=== PATIENT | male | born 1975 | race Caucasian/White ===

== ENCOUNTER 2018-02-08 12:08 | Emergency (ER) | payer SELFPAY ==
[~2018-02-08] VITALS: Ht 198.1 cm; Wt 102.1 kg
[2018-02-08] MEDS ORDERED: MAGN296S9 PO (12:38)
--- NOTE | 2018-02-08 12:38 | PHYS DOC ---
Past History Past Medical History: Seizure, Other Past Surgical History: Appendectomy, Other Alcohol Use: Occasionally Drug Use: None Adult General Chief Complaint Chief Complaint: GI PROBLEM HPI HPI Patient is a 43 year old male who presents with complaining of abdominal pain. Patient states he has history of Crohn's disease and complaining of chronic generalized abdominal pain for years that getting force for the last 5 weeks as a constant pain with radiation to his back. She rated his pain 10 over 10 and denies nausea and vomiting and diarrhea and constipation and states he had a bowel movement this morning without change of his pain. Patient states he lives in [place] and usually goes to the [facility] right now visiting his brother who lost his . According to EMR patient was seen in this emergency room late last night and server cashier and had unremarkable CBC, CMP, UA, CT of abdomen and pelvis except for constipation and treated with Dilaudid and had prescription for medication. Patient states he did go to [place] and refilled his medication but didn't take his medication. Review of Systems Review of Systems Constitutional: Denies fever or chills [] Eyes: Denies change in visual acuity, redness, or eye pain [] HENT: Denies nasal congestion or sore throat [] Respiratory: Denies cough or shortness of breath [] Cardiovascular: No additional information not addressed in HPI [] GI: Denies abdominal pain, nausea, vomiting, bloody stools or diarrhea [] : Denies dysuria or hematuria [] Musculoskeletal: Denies back pain or joint pain [] Integument: Denies rash or skin lesions [] Neurologic: Denies headache, focal weakness or sensory changes [] Endocrine: Denies polyuria or polydipsia [] All other systems were reviewed and found to be within normal limits, except as documented in this note. Allergies Allergies Allergies Coded Allergies Type Severity Reaction Last Updated Verified No Known Drug Allergies 02/08/18 No Physical Exam Physical Exam Constitutional: Well l nourished, no acute distress, non-toxic appearance. [] HENT: Normocephalic, oropharynx moist Eyes: PERRLA, EOMI, conjunctiva normal, no discharge. [] Neck: Normal range of motion, no tenderness, supple, no stridor. [] Cardiovascular:Heart rate regular rhythm, no murmur [] Lungs & Thorax: Bilateral breath sounds clear to auscultation [] Abdomen: Bowel sounds normal, soft, no tenderness, no masses, no pulsatile masses, abdominal clean old scar without abdominal distention or tenderness. [] Skin: Warm, dry, no erythema, no rash. [] Back: No tenderness, no CVA tenderness. [] Extremities: No tenderness, no cyanosis, no clubbing, ROM intact, no edema. [] Neurologic: Alert and oriented X 3, normal motor function, normal sensory function, no focal deficits noted. [] Psychologic: Affect anxious, judgement normal, mood normal. [] Current Patient Data Vital Signs Vital Signs Date Time Temp Pulse Resp B/P (MAP) Pulse Ox O2 Delivery O2 Flow Rate FiO2 02/08/18 12:21 98.9 85 22 97 Room Air EKG EKG [] Radiology/Procedures Radiology/Procedures [] Course & Med Decision Making Course & Med Decision Making Evaluation of patient in ER showed 43-year-old male patient with history of Crohn's disease who presented to this emergency room for the second time in the last few hours with complaining of chronic abdominal pain. Patient was treated with Dilaudid earlier this morning. CT of abdomen and pelvis showed constipation. Patient states that he cannot have. Pain medication because of constipation and is to follow-up with his GI specialist and primary care physician. According to EMR patient is not allergic to any medication but he stated he is allergic to Toradol, morphine and fentanyl. Patient treated with Norflex and prescription for magnesium citrate was given. Dragon Disclaimer Dragon Disclaimer This electronic medical record was generated, in whole or in part, using a voice recognition dictation system. Departure Departure: Impression: Primary Impression: Chronic abdominal pain Additional Impressions: Constipation Tobacco abuse Tobacco abuse counseling Crohns disease Drug-seeking behavior Disposition: HOME, SELF-CARE (At 1245) Condition: STABLE Referrals: PCP,NO (PCP) Patient Instructions: Constipation, Adult, Smoking Cessation, Smoking Cessation , Tips For Success Additional Instructions: Drink plenty of liquids Follow-up with your primary care physician in 3-5 days Return to ER if not getting better Scripts Magnesium Citrate (MAGNESIUM CITRATE) 296 Ml Solution 296 ML PO ONCE, #296 ML Prov: ISMAEL HERRING MD 02/08/18 Problem Qualifiers ISMAEL HERRING MD Feb 08, 2018 12:38
[2018-02-08] MEDS ORDERED: ORPHENADRINE CITRATE 60 MG/2 ML VIAL. IM ONE (12:45)
[2018-02-08 12:54] VITALS: BP 129/78
== END 2018-02-08 12:59 | disposition home or self-care (01) ==
LOC: ER 12:08
DX: G89.29 Other chronic pain (principal); R10.84 Generalized abdominal pain; K59.00 Constipation, unspecified; K50.90 Crohn's disease, unspecified, without complications; Z76.5 Malingerer [conscious simulation]; Z72.0 Tobacco use; Z71.6 Tobacco abuse counseling; Z90.89 Acquired absence of other organs
CPT/HCPCS: 96372; 99283; J2360

== ENCOUNTER 2018-05-31 03:34 | Emergency (ER) | payer MEDICAID, MEDICARE ==
[~2018-05-31] VITALS: Ht 198.1 cm; Wt 104.3 kg
[~2018-05-31 03:34] MED LIST: MAGN296S9 PO
--- NOTE | 2018-05-31 04:03 | PHYS DOC ---
Adult General Chief Complaint Chief Complaint depression HPI HPI 43 years old gentleman presented emergency department with suicidal ideation stated on thinking to hang myself has a history of depression Review of Systems Review of Systems Constitutional: Denies fever or chills [] Eyes: Denies change in visual acuity, redness, or eye pain [] HENT: Denies nasal congestion or sore throat [] Respiratory: Denies cough or shortness of breath [] Cardiovascular: No additional information not addressed in HPI [] GI: Denies abdominal pain, nausea, vomiting, bloody stools or diarrhea [] : Denies dysuria or hematuria [] Musculoskeletal: Denies back pain or joint pain [] Integument: Denies rash or skin lesions [] Neurologic: Denies headache, focal weakness or sensory changes [] Endocrine: Denies polyuria or polydipsia [] All other systems were reviewed and found to be within normal limits, except as documented in this note. Allergies Allergies Allergies Coded Allergies Type Severity Reaction Last Updated Verified No Known Drug Allergies 02/08/18 No Physical Exam Physical Exam Constitutional: Well developed, well nourished, no acute distress, non-toxic appearance. [] HENT: Normocephalic, atraumatic, bilateral external ears normal, oropharynx moist, no oral exudates, nose normal. [] Eyes: PERRLA, EOMI, conjunctiva normal, no discharge. [] Neck: Normal range of motion, no tenderness, supple, no stridor. [] Cardiovascular:Heart rate regular rhythm, no murmur [] Lungs & Thorax: Bilateral breath sounds clear to auscultation [] Abdomen: Bowel sounds normal, soft, no tenderness, no masses, no pulsatile masses. [] Skin: Warm, dry, no erythema, no rash. [] Back: No tenderness, no CVA tenderness. [] Extremities: No tenderness, no cyanosis, no clubbing, ROM intact, no edema. [] Neurologic: Alert and oriented X 3, normal motor function, normal sensory function, no focal deficits noted. [] Current Patient Data Vital Signs Vital Signs Date Time Temp Pulse Resp B/P (MAP) Pulse Ox O2 Delivery O2 Flow Rate FiO2 05/31/18 03:45 98.0 83 20 95 Room Air EKG EKG [] Radiology/Procedures Radiology/Procedures [] Course & Med Decision Making Course & Med Decision Making Pertinent Labs and Imaging studies reviewed. (See chart for details) [] Final Impression Final Impression [] Problems: (1) Suicidal ideation (2) Depressed Qualifiers: Qualified Codes: F33.1 - Major depressive disorder, recurrent, moderate Dragon Disclaimer Dragon Disclaimer This electronic medical record was generated, in whole or in part, using a voice recognition dictation system. KARRIE ADAMS MD May 31, 2018 04:03
[2018-05-31 04:15] LABS: BASO % 0 % (0-3); EOS % 0 % (0-3); HEMATOCRIT 41.3 % (39.0-53.0); HEMOGLOBIN 14.4 g/dL (13.0-17.5); LYMPH # 0.5 x10^3/uL (1.0-4.8); LYMPH % 6 % (24-48); MEAN CORPUSCULAR HEMOGLOBIN 32 pg (25-35); MEAN CORPUSCULAR HGB CONC 35 g/dL (31-37); MEAN CORPUSCULAR VOLUME 92 fL (79-100); MONO # 0.1 x10^3/uL (0.0-1.1); MONO % 1 % (0-9); NEUT # 8.9 x10^3uL (1.8-7.7); NEUT % 93 % (31-73); PLATELET COUNT 266 x10^3/uL (140-400); RED CELL DISTRIBUTION WIDTH 14.4 % (11.5-14.5); WHITE BLOOD COUNT 9.5 x10^3/uL (4.0-11.0)
[2018-05-31] MEDS ORDERED: LORazepam 1 MG TABLET PO ONE ×2 (04:15→10:30)
[2018-05-31 04:25] LABS: CALCIUM 8.7 mg/dL (8.5-10.1); GFR 81.2; POTASSIUM 4.4 mmol/L (3.5-5.1)
[2018-05-31 04:32] LABS: BARBITURATES NEG (NEG); BENZODIAZEPINES NEG (NEG); CANNABINOIDS NEG (NEG); COCAINE NEG (NEG); METHADONE NEG (NEG); OPIATES POS (NEG); PHENCYCLIDINE NEG (NEG)
[2018-05-31 04:33] LABS: AMPHETAMINE/METHAMPHETAMINE NEG (NEG)
[2018-05-31] MEDS ORDERED: diphenhydrAMINE HCL 25 MG CAPSULE PO ONE (05:00)
[2018-05-31] MEDS ORDERED: levETIRAcetam 500 MG TABLET PO ONE (10:30)
[2018-05-31] MEDS ORDERED: lamoTRIgine 100 MG TABLET. PO ONE (10:30)
[2018-05-31 13:33] VITALS: BP 122/71
== END 2018-05-31 12:55 ==
LOC: ER 03:34
DX: R45.851 Suicidal ideations (principal); F33.1 Major depressive disorder, recurrent, moderate
CPT/HCPCS: 36415; 80048; 80307; 85025; 99285; G0480

== ENCOUNTER 2019-10-09 18:03 | Emergency (ER) | payer MEDICARE ==
[~2019-10-09] VITALS: Ht 198.1 cm; Wt 104.5 kg
[~2019-10-09 18:03] MED LIST changes: +MAGN296S68 PO; -MAGN296S9 PO
[2019-10-09 18:08] VITALS: BP 122/78
[2019-10-09] MEDS ORDERED: IV NORMAL SALINE 1,000ML 1,000 ML IV ONE (18:30)
--- NOTE | 2019-10-09 18:34 | PHYS DOC ---
Past History Past Medical History: TB, Other Additional Past Medical Histor: LIVER LAC Past Surgical History: Appendectomy, Other Additional Past Surgical Histo: SURGERY OF LEG Alcohol Use: Heavy Drug Use: None General Adult EDM: Chief Complaint: MEDICAL CLEARANCE HPI: HPI: 44-year-old male presents via EMS as a diversion from the [facility]. The patient was coming from [place] for alcohol and methamphetamine detox. He is expecting to be able to be admitted to a detox program. He does not have any other medical complaints. His last alcohol was 6 hours ago. His last methamphetamines was 4 days ago. He denies fever chills. Review of Systems: Review of Systems: Constitutional: Denies fever or chills Eyes: Denies change in visual acuity HENT: Denies nasal congestion or sore throat Respiratory: Denies cough or shortness of breath Cardiovascular: Denies chest pain or edema GI: Denies abdominal pain, nausea, vomiting, bloody stools or diarrhea : Denies dysuria Musculoskeletal: Denies back pain or joint pain Integument: Denies rash Neurologic: Denies headache, focal weakness or sensory changes Endocrine: Denies polyuria or polydipsia Lymphatic: Denies swollen glands Psychiatric: Denies depression or anxiety Heart Score: Risk Factors: Risk Factors: DM, Current or recent (<one month) smoker, HTN, HLP, family history of CAD, obesity. Risk Scores: Score 0 - 3: 2.5% MACE over next 6 weeks - Discharge Home Score 4 - 6: 20.3% MACE over next 6 weeks - Admit for Clinical Observation Score 7 - 10: 72.7% MACE over next 6 weeks - Early Invasive Strategies Current Medications: Current Meds: Current Medications Medications (Trade) Dose Ordered Sig/Leslie Start Time Stop Time Status Last Admin Dose Admin Sodium Chloride 1,000 ml @ 1,000 mls/hr 1X ONCE 10/09/19 18:30 10/09/19 19:29 UNV Allergies: Allergies: Allergies Coded Allergies Type Severity Reaction Last Updated Verified No Known Drug Allergies 02/08/18 No Physical Exam: PE: Constitutional: Well developed, well nourished, no acute distress, non-toxic appearance. [] HENT: Normocephalic, atraumatic, bilateral external ears normal, oropharynx moist, no oral exudates, nose normal. [] Eyes: PERRLA, EOMI, conjunctiva normal, no discharge. [] Neck: Normal range of motion, no tenderness, supple, no stridor. [] Cardiovascular: Heart rate regular rhythm, no murmur [] Lungs & Thorax: Bilateral breath sounds clear to auscultation [] Abdomen: Bowel sounds normal, soft, no tenderness, no masses, no pulsatile masses. [] Skin: Warm, dry, no erythema, no rash. [] Back: No tenderness, no CVA tenderness. [] Extremities: No tenderness, no cyanosis, no clubbing, ROM intact, no edema. [] Neurologic: Alert and oriented X 3, normal motor function, normal sensory function, no focal deficits noted. [] Psychologic: Affect normal, judgement normal, mood normal. [] Current Patient Data: Vital Signs: Vital Signs Date Time Temp Pulse Resp B/P (MAP) Pulse Ox O2 Delivery O2 Flow Rate FiO2 10/09/19 18:08 97.6 74 18 122/78 (93) 100 Room Air EKG: EKG: [] Radiology/Procedures: Radiology/Procedures: [] Course & Med Decision Making: Course & Med Decision Making Pertinent Labs and Imaging studies reviewed. (See chart for details) The patient is positive for benzodiazepines. He is negative for alcohol and methamphetamines. We called the [facility] and they stated that they have no available space. The patient has no other medical concerns. He will have to call and attempt to establish outpatient alcohol and drug treatment. He is stable for discharge at this time. [] Dragon Disclaimer: Dragon Disclaimer: This electronic medical record was generated, in whole or in part, using a voice recognition dictation system. Departure Departure: Impression: Primary Impression: Medical clearance for psychiatric admission Additional Impression: Alcohol dependence Qualified Codes: F10.29 - Alcohol dependence with unspecified alcohol- induced disorder Disposition: HOME, SELF-CARE Condition: STABLE Referrals: PCP,CR (PCP) Patient Instructions: Alcohol and Drug Addiction, Finding Treatment GERONIMO MILAN DO Oct 09, 2019 18:34
[2019-10-09 18:52] LABS: CLARITY,URINE CLEAR; COLOR,URINE YELLOW
[2019-10-09 18:53] LABS: BILIRUBIN,URINE NEG (NEG); GLUCOSE,URINE NEG (NEG); NITRITE,URINE NEG (NEG); UROBILINOGEN,URINE 0.2 mg/dL (0.2 mg/dL)
[2019-10-09 18:57] LABS: BARBITURATES NEG (NEG); BENZODIAZEPINES POS (NEG); CANNABINOIDS NEG (NEG); COCAINE NEG (NEG); METHADONE NEG (NEG); OPIATES NEG (NEG); PHENCYCLIDINE NEG (NEG)
[2019-10-09 18:59] LABS: BASO % 1 % (0-3); EOS # 0.2 x10^3/uL (0.0-0.7); EOS % 3 % (0-3); HEMATOCRIT 41.4 % (39.0-53.0); LYMPH # 1.8 x10^3/uL (1.0-4.8); LYMPH % 21 % (24-48); MEAN CORPUSCULAR HEMOGLOBIN 31 pg (25-35); MEAN CORPUSCULAR HGB CONC 34 g/dL (31-37); MEAN CORPUSCULAR VOLUME 92 fL (79-100); MONO # 0.4 x10^3/uL (0.0-1.1); MONO % 5 % (0-9); NEUT # 6.1 x10^3uL (1.8-7.7); NEUT % 71 % (31-73); PLATELET COUNT 316 x10^3/uL (140-400); RED BLOOD COUNT 4.52 x10^6/uL (4.30-5.70); RED CELL DISTRIBUTION WIDTH 13.4 % (11.5-14.5); WHITE BLOOD COUNT 8.6 x10^3/uL (4.0-11.0)
[2019-10-09 19:00] LABS: BACTERIA,URINE FEW /HPF (0-FEW); RBC,URINE OCC /HPF (0-2); SQUAMOUS EPITHELIAL CELL,UR OCC /LPF; WBC,URINE 0 /HPF (0-4)
[2019-10-09 19:01] LABS: CALCIUM 8.6 mg/dL (8.5-10.1); CREATININE 0.8 mg/dL (0.7-1.3); GFR 104.5
[2019-10-09 19:03] LABS: AMPHETAMINE/METHAMPHETAMINE NEG (NEG)
[2019-10-09 19:07] LABS: ALBUMIN 3.2 g/dL (3.4-5.0); ALBUMIN/GLOBULIN RATIO 0.7 (1.0-1.7); TOTAL BILIRUBIN 0.2 mg/dL (0.2-1.0); TOTAL PROTEIN 7.6 g/dL (6.4-8.2)
== END 2019-10-09 20:23 | disposition home or self-care (01) ==
LOC: ER 18:03
DX: Z00.8 Encounter for other general examination (principal); F10.29 Alcohol dependence with unspecified alcohol-induced disorder; Y90.0 Blood alcohol level of less than 20 mg/100 ml
CPT/HCPCS: 36415; 80053; 80307; 81001; 85025; 99283; G0480; J7030